=== PATIENT | male | born 2000 | race Caucasian/White ===

== ENCOUNTER 2022-04-13 12:40 | Emergency (ER) | payer BC, SELFPAY ==
[2022-04-13 12:46] VITALS: BP 132/73; PULSE 84; RESP 16; O2SAT 98; BMI 30.1
--- NOTE | 2022-04-13 12:54 | CRLHL7_ITS ---
For Patients: As a result of the Cures Act, medical imaging exams and procedure reports are released immediately into your electronic medical record. You may view this report before your referring provider. If you have questions, please contact your health care provider. INDICATION: Right wrist injury. TECHNIQUE: Three views of the right wrist. COMPARISON: Today`s right hand x-rays. S FINDINGS: No fracture, subluxation or other abnormality. CONCLUSION: Negative right wrist. Dictated by Joss Serrano MD @ 04/13/2022 1:57:22 PM (Electronically Signed)
--- NOTE | 2022-04-13 12:54 | CRLHL7_ITS ---
For Patients: As a result of the Cures Act, medical imaging exams and procedure reports are released immediately into your electronic medical record. You may view this report before your referring provider. If you have questions, please contact your health care provider. INDICATION: Right hand injury. TECHNIQUE: Three views of the right hand. COMPARISON: Today`s right wrist x-rays. FINDINGS: No soft tissue swelling, fracture, subluxation or other abnormality. IMPRESSION: Negative right hand. Dictated by Joss Serrano MD @ 04/13/2022 1:56:30 PM (Electronically Signed)
--- NOTE | 2022-04-13 13:10 | ED_ITS ---
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 He was injured yesterday during practice when somebody's helmet hit his right hand. He has pain at the base of his thumb in over his right knuckle. He says he talked to a friend's mom who is a surgeon who said he might have a broken scaphoid and a broken knuckle and he should be seen. No numbness or loss of function, denies other complaints. He does have some swelling particularly over the knuckle. Small abrasion there as well. No redness or evidence of infection. General health is good. Related Data Home Medications Medication Instructions Recorded Confirmed methylphenidate HCl 54 mg 54 mg PO DAILY 04/13/22 04/13/22 tablet,extended release 24 hr (Concerta) Allergies Allergy/AdvReac Type Severity Reaction Status Date / Time tree nut Allergy Severe Anaphylaxis Verified 04/13/22 12:48 [facility] Social History Smoking Status: Current some day smoker Do you use any of these nicotine containing products: Vaping Products Second hand tobacco smoke exposure: No How often do you have a drink containing alcohol: monthly or less How many standard drinks containing alcohol do you have on a typical day: 1 or 2 How often do you have six or more drinks on one occasion: Never AUDIT-C Alcohol total score: 1 Non-prescribed substance use: denies use Exam Narrative: Exam Narrative: Vital signs reviewed In general, an alert, well-appearing teenager. Head: Normocephalic, atraumatic. Extremities: Examination of the right hand shows swelling and some tenderness over the right MCP joint, little bit into the metacarpal. No pain with axial loading of the 2nd digit. Mild tenderness over the snuffbox. No pain with axial loading of the thumb. No tenderness of the wrist. Remainder of the hand is atraumatic. Skin: Warm dry well perfused. Small abrasion over the 2nd MCP joint. No erythema or warmth. Neurologic: He is alert, conversant. Const: Vital Signs, click to edit/add: Vital Signs - 24 hr 04/13/22 12:46 Pulse Rate [Pulse Oximeter] 84 Respiratory Rate 16 Blood Pressure [Ri ght Upper Arm] 132/73 Pulse Oximetry 98 Oxygen Delivery Me thod Room Air Documenting provider has reviewed patient's vital signs: yes Course Course Hospital Course: X-rays of the right wrist and right hand by my review are negative. I do not see any evidence of fracture of the scaphoid. Final radiology review both x- rays is likewise negative. He does have mild tenderness over the snuffbox. I have reviewed with him that sometimes x-rays of the scaphoid can miss a subtle fracture, and that has this bone has tenuous blood supply it is best to be conservative initially. We are going to put him in a thumb spica. I have asked him to be seen again in a week for repeat x-rays if he still having pain. Ibuprofen or Tylenol as needed. Ice. He is going to talk to the operational trainer at [facility] to see if he can be put in to a taped position that will be stable for practice. Vital Signs Vital signs: Initial Vital Signs Temperature Source Temporal Artery Scan 04/13/22 12:46 Pulse Rate 84 04/13/22 12:46 Pulse Rhythm 04/13/22 12:46 Respiratory Rate 16 04/13/22 12:46 Blood Pressure 132/73 04/13/22 12:46 Blood Pressure Mean 92 04/13/22 12:46 Blood Pressure Position Sitting 04/13/22 12:46 Pulse Oximetry 98 04/13/22 12:46 Oxygen Delivery Method 04/13/22 12:46 Vital Signs Pulse Rate 84 04/13/22 12:46 Respiratory Rate 16 04/13/22 12:46 Blood Pressure 132/73 04/13/22 12:46 Pulse Oximetry 98 04/13/22 12:46 Oxygen Delivery Method 04/13/22 12:46 Pulse Rate 84 04/13/22 12:46 Respiratory Rate 16 04/13/22 12:46 Blood Pressure 132/73 04/13/22 12:46 Pulse Oximetry 98 04/13/22 12:46 Oxygen Delivery Method 04/13/22 12:46 Discharge Plan Discharge Clinical Impression: Contusion of hand, right, Injury of right wrist Patient Disposition: Home, Self-Care Condition: Stable Additional Instructions: Recommend immobilization of your rest for the next week, repeat x-rays if continued pain in that area, as fractures of the scaphoid can sometimes be missed on initial x-ray. Prescriptions: No Action methylphenidate HCl [Concerta] 54 mg tablet extended release 24hr 54 mg PO DAILY Follow Up/Referrals: Provider,Not a Local [Primary Care Provider] - Stand Alone Forms: Dropmysite Info Instructions
== END 2022-04-13 14:30 | disposition home or self-care (01) ==
PROVIDERS: Emergency Provider Emergency Medicine
DX: S60.221A Contusion of right hand, initial encounter (principal); S69.91XA Unspecified injury of right wrist, hand and finger(s), initial encounter; W20.8XXA Other cause of strike by thrown, projected or falling object, initial encounter; Y93.61 Activity, american tackle football; Y92.321 Football field as the place of occurrence of the external cause; Y99.8 Other external cause status
CPT/HCPCS: 73110; 73130; 99283